=== PATIENT | female | born 1990 | race Two or more races ===

== ENCOUNTER 2018-10-27 08:49 | Emergency (ER) | payer OTHER ==
[~2018-10-27] VITALS: Ht 157.5 cm; Wt 104.3 kg
[2018-10-27 09:35] LABS: CLARITY,URINE HAZY (CLEAR); COLOR,URINE YELLOW (YELLOW)
[2018-10-27 09:36] LABS: BILIRUBIN,URINE NEGATIVE (NEGATIVE); KETONES,URINE NEGATIVE (NEGATIVE); LEUKOCYTE ESTERASE ,URINE TRACE (NEGATIVE); NITRITE,URINE NEGATIVE (NEGATIVE); PROTEIN,URINE DIPSTICK NEGATIVE (NEGATIVE); URINE UROBILINOGEN 0.2 mg/dL (0.2 - 1)
[2018-10-27 09:38] LABS: PREGNANCY TEST, URINE POSITIVE (NEGATIVE)
[2018-10-27 10:00] LABS: EPITHELIAL CELLS,URINE RARE /LPF
[2018-10-27 12:11] LABS: BASOPHILS # (AUTO) 0.1 (0.0-0.1); BASOPHILS % 0.7 % (0.0-1.0); EOSINOPHILS # (AUTO) 0.2 (0.0-0.4); EOSINOPHILS % 1.9 % (0.0-6.0); HEMATOCRIT 39.2 % (34.2-44.1); HEMOGLOBIN 12.7 g/dL (12.0-16.0); LYMPHOCYTES # (AUTO) 1.8 (1.0-3.2); LYMPHOCYTES % 18.7 % (18.0-39.1); MEAN CORPUSCULAR HEMOGLOBIN 28.1 pg (28-32); MEAN CORPUSCULAR HGB CONC 32.4 g/dL (31-35); MEAN CORPUSCULAR VOLUME 86.7 fL (81-99); MONOCYTES # (AUTO) 0.8 (0.2-0.8); NEUTROPHILS # (AUTO) 6.6 (2.1-6.9); NEUTROPHILS % 70.4 % (38.7-80.0); PLATELET COUNT 353 x10e3/uL (140-360); RED BLOOD COUNT 4.52 x10e6/uL (3.6-5.1)
[2018-10-27 12:39] LABS: ALANINE AMINOTRANSFERASE 17 IU/L (0-55); ALBUMIN 3.5 g/dL (3.5-5.0); ALBUMIN/GLOBULIN RATIO 0.9 (0.8-2.0); ALKALINE PHOSPHATASE 92 IU/L (40-150); BLOOD UREA NITROGEN 9 mg/dL (7-26); BUN/CREATININE RATIO 13 (6-25); CALCIUM 9.5 mg/dL (8.4-10.2); CARBON DIOXIDE 23 mmol/L (22-29); CREATININE, SERUM 0.72 mg/dL (0.57-1.11); EST GLOMERULAR FILTRATION RATE > 60 ML/MIN (60-); GLUCOSE 92 mg/dL (74-118)
[2018-10-27 12:56] LABS: CHLORIDE 108 mmol/L (98-107); POTASSIUM 3.9 mmol/L (3.5-5.1); SODIUM 138 mmol/L (136-145)
[2018-10-27 13:07] LABS: ANION GAP 10.9 mmol/L (8-16)
--- NOTE | 2018-10-27 14:24 | Diagnostic Imaging Report ---
Pelvic OB ultrasound History: , first trimester, vaginal bleeding. Last menstrual period 09/04/2018. Previous US: None. Findings: An intrauterine gestational sac is identified measuring up to 1.15 cm, with an estimated gestational age of 5 weeks, 6 days. No pole or yolk sac is visualized. There is a small subchorionic hemorrhage, measuring up to 5 mm. The uterus measures 8.5 x 4.9 x 5.3 cm. The right ovary measures 2.6 x 2.2 x 2.0 cm. The left ovary measures 2.6 x 1.6 x 1.8 cm. There is a right-sided ovarian cyst, measuring up to 1.4 cm. Bilateral adnexal doppler flow is demonstrated. Trace amount of free fluid in the pelvis, likely physiologic. IMPRESSION: Intrauterine gestational sac, with estimated gestational age of 5 weeks, 6 days. Small subchorionic hemorrhage, measuring up to 5 mm. No pole or yolk sac is visualized. Follow-up pelvic ultrasound and beta-hCG per protocol is recommended. Signed by: Dr. Riley Frank MD on 10/27/2018 2:20 PM
[2018-10-27 14:58] VITALS: BP 131/79
== END 2018-10-27 15:02 | disposition home or self-care (01) ==
LOC: ER 08:49
DX: O20.9 Hemorrhage in early pregnancy, unspecified (principal); O20.0 Threatened abortion
CPT/HCPCS: 36415; 76817; 80053; 81001; 81025; 84702; 85025; 86850; 86900; 99284